=== PATIENT | male | born 2005 | race Caucasian/White ===

== ENCOUNTER 2025-08-03 07:45 | Day surgery (SDC) | payer BC, SELFPAY ==
[2025-08-03] VITALS (13 sets, daily range): BP systolic 119–155; BP diastolic 64–96; PULSE 76–112; RESP 16–20; TEMP 36.6–37.7; O2SAT 95–100; BMI 25.1
[2025-08-03] MEDS: LACTATED RINGERS 1000 ML 1,000 ML 100 ML IV (08:00)
[2025-08-03] MEDS: SODIUM CHLORIDE 0.9 % (FLUSH) 10 ML SYRINGE IVF (08:00)
--- NOTE | 2025-08-03 09:30 | P.ANES_ITS ---
Anesthesia Charges Start Date/Time Anesthesia Start Date: 08/03/25 Anesthesia Start Time: 08:51 Stop Date/Time Anesthesia Stop Date: 08/03/25 Anesthesia Stop Time: 09:30 Coding CPT Codes CPT Codes: ANESTH PROCEDURE ON MOUTH - 26708 ([id number]) P1 - NORMAL HEALTHY PATIENT, QK - DATA VISUALIZATION DEVELOPER 2-4 CNCRNT ANES PROC, QX - LEATHER STITCHER SVTeddy W/ MED DIRECTION
--- NOTE | 2025-08-03 09:30 | W.ANESCHARGE ---
Anesthesia Charges Start Date/Time Anesthesia Start Date: 08/03/25 Anesthesia Start Time: 08:51 Stop Date/Time Anesthesia Stop Date: 08/03/25 Anesthesia Stop Time: 09:30 Coding CPT Codes CPT Codes: ANESTH PROCEDURE ON MOUTH - 87451 ([id number]) P1 - NORMAL HEALTHY PATIENT, QK - DRY CLEANING MACHINE OPERATOR HELPER 2-4 CNCRNT ANES PROC, QX - SERVICE LEARNING COORDINATOR SVTeddy W/ MED DIRECTION
--- NOTE | 2025-08-03 09:33 | P.ANES_ITS ---
Anesthesia Charges Start Date/Time Anesthesia Start Date: 08/03/25 Anesthesia Start Time: 08:51 Stop Date/Time Anesthesia Stop Date: 08/03/25 Anesthesia Stop Time: 09:30 Coding CPT Codes CPT Codes: ANESTH PROCEDURE ON MOUTH - 27527 ([id number]) P1 - NORMAL HEALTHY PATIENT, QK - DOG HAIR CLIPPER 2-4 CNCRNT ANES PROC, QX - DIRECTOR EMPLOYMENT SVTeddy W/ MED DIRECTION
--- NOTE | 2025-08-03 09:33 | W.ANESCHARGE ---
Anesthesia Charges Start Date/Time Anesthesia Start Date: 08/03/25 Anesthesia Start Time: 08:51 Stop Date/Time Anesthesia Stop Date: 08/03/25 Anesthesia Stop Time: 09:30 Coding CPT Codes CPT Codes: ANESTH PROCEDURE ON MOUTH - 65688 ([id number]) P1 - NORMAL HEALTHY PATIENT, QK - INVERTER AND CLIPPER 2-4 CNCRNT ANES PROC, QX - OCEANOGRAPHER PHYSICAL SVTeddy W/ MED DIRECTION
[2025-08-03] MEDS: IBUPROFEN 100 MG/5 ML SUSP 200 MG PO (10:09)
[2025-08-03] MEDS: OXYCODONE 1 MG/ML ORAL SOLN 5 MG PO (10:09)
--- NOTE | 2025-08-03 10:13 | SUR.PHASEII ---
elevated temp, mild tavhycardia. Pt is complaining of pain in his tailbone area which has been going on for a few days
--- NOTE | 2025-08-03 11:53 | W.PM.ENTPROC ---
Procedure Note Date of procedure: 08/03/25 Procedure: Preop diagnosis chronic tonsillitis, tonsillar hypertrophy Postop diagnosis same Procedure tonsillectomy Under general trach anesthesia patient was prepped draped usual fashion. The McIvor mouth gag was inserted the tongue retracted forward. The right tonsil was removed with a combination of needlepoint and bipolar cautery. Bleeding was controlled with suction cautery meticulous hemostasis was achieved. This was repeated on the left side in identical fashion. The uvula was markedly elongated to the membranous portion was removed with the needlepoint cautery to help prevent postoperative swelling. Patient procedure well was taken recovery satisfactory condition. Blood loss less than 10 mL. Surgeon: Kiel Person MD
== END 2025-08-03 11:33 | disposition home or self-care (01) ==
LOC: OR 07:45
PROVIDERS: PCP Family Medicine; Visit Provider Otolaryngology
PROC: (CPT 42826; principal; 2025-08-03 08:30)
DX: J35.01 Chronic tonsillitis (principal)
CPT/HCPCS: 42826; 00170; 88304; A9270; J0330; J1100; J2250; J2405; J2704; J3010; J7120

== ENCOUNTER 2025-08-08 21:40 | Emergency (ER) | payer BC, SELFPAY ==
--- OUTSIDE RECORDS SUMMARY | 2025-08-08 21:42 | XMS_ITS | Clinical Summary ---
Author Organization [facility] Address [address] [place] [address] Care Team Providers Care Client Executive Name Role Phone Unavailable Primary Care Provider Unavailabl e Source Comments [facility],non-owned Affiliates and Associated Physician Practices is amultiple site organization consisting of ambulatory clinics and hospital sitesin [place] and [place]. This disclosure is being madepursuant to the Care Everywhere program and may not contain all information available regarding this patient. Last updated 18.[facility] Allergies No known active allergies Medications * Be aware that medications may not be up to date on this document. Alwaysverify current medications with the patient. cetirizine (ZYRTEC) 10 MG tablet TK 1 T PO QD 05/03/2019 Active fluticasone propionate (FLONASE) 50 MCG/ACT nasal spray 2 sprays Active Social History Tobacco Use Types Packs/Day Years Used Date Smoking Tobacco: Never Smokeless Tobacco: Never Sex and Gender Information Value Date Recorded Sex Assigned at Not on file Legal Sex Male 2:40 PM CDT Gender Identity Not on file Sexual Orientation Not on file Last Filed Vital Signs Vital Sign Reading Time Taken Comments Blood Pressure 150/63 01/14/2020 2:55 PM CDT Pulse 57 01/14/2020 2:55 PM CDT Temperature 36.3 C (97.3 F) 01/14/2020 2:55 PM CDT Respiratory Rate 16 01/14/2020 2:55 PM CDT Oxygen Saturation 100% 01/14/2020 2:55 PM CDT Inhaled Oxygen Concentration - - Weight - - Height - - Body Mass Index - - Plan of Treatment Health Maintenance Due Date Last Done Comments HIV SCREENING 2018 HPV VACCINE (1 - Male 3-dose series) 2018 MENINGOCOCCAL (Group B) VACC INE SHARED DECISION-MAKING (1 of 2 - Standard) 2019 HEPATITIS C SCREENING 01/05/2021 DTAP/TDAP/TD VACCINES (1 - Tdap) 2022 HEPATITIS B VACCINE (1 of 3 - 19+ 3-dose series) 2022 DEPRESSION SCREENING 11/08/2024 COVID-19 VACCINE (1 - 2023-2 5 season) 2025 INFLUENZA VACCINE (#1) 2025 ZOSTER VACCINE (1 of 2) 2053 HIB VACCINE Aged Out No longer eligi ble based on patient's age to complete this topic MENINGOCOCCAL GROUPS A/C/Y/W VACCINE Aged Out No longer eligible b ased on patient's age to complete this topic PNEUMOCOCCAL VACCINE Aged Out No long er eligible based on patient's age to complete this topic Insurance [employer]
--- OUTSIDE RECORDS SUMMARY | 2025-08-08 21:42 | XMS_ITS | Clinical Summary ---
Author Organization [facility] Address [address] [place] [id number] Care Team Providers Care Cold Press Operator Name Role Phone Montana Clay MD Primary Care Provider Allergies Active Allergy Reactions Criticality Noted Date Comments House Dust 03/20/2008 [place] Hives 03/20/2008 Medications fluticasone (50 mcg per actuation) nasal solution (FLONASE)Indicat ions:Allergic rhinitis due to pollen, unspecified seasonality Inhale 2 Sprays to both nostrils once daily. 48 g 11 1 Active cetirizine (ZYRTEC) 10 mg tabletIndication s:Allergic rhinitis due to pollen, unspecified seasonality Take 1 Tablet (10 mg) by mouth once daily. 90 tablet. 3 1 Active valACYclovir (VALTREX) 500 mg tabletIndication s:Recurrent cold sores Take 1 Tablet (500 mg) by mouth two times daily. 20 Tablet 10 5 Active Adapalene 0.3 % topical gelIndications:A cne vulgaris APPLY A SMALL AMOUNT TO THE AFFECTED AREA AT BEDTIME DIRECTED TO CLEANSED SKIN ON FACE 45 g 3 5 Active Active Problems Problem Noted Date Diagnosed Date Left varicocele 01/01/2021 Allergic rhinitis 07/07/2011 Herpes simplex 08/10/2010 Encounters Date Type Department Care Team Description 08/03/2025 Lab Requisition [facility] [phone] Kiel Person MD 07/08/2025 Refill [facility] [address] [place] [address] Montana Clay MD Refill Request (Adapalene) 06/25/2025 Telephone [facility] [address] [place] [address] Montana Clay MD CONSULT (DISCUSS A REFERRAL FOR PATIENT) from Last 3 Months Immunizations Immunization Administration Dates Next Due AMB Influenza, IIV3 (Age >=3 years)(Flu Clinic Only) 08/14/2009 COVID-19 vaccine (Credii NTech 30mcg/0.3mL) PFMDV 03/04/2021,02/11/2021 DTaP 02/17/2008, 4,2003,05/03,2003 HIB-HepB (Comvax) 07/24/2004,2003,03/13/20 03 HPV 9 (Gardasil 9) 06/20/2021,09/18/2016, 016 Hepatitis A (Peds) 05/14/2017,05/12/2016 Hepatitis B (Peds) 2003 Inactivated Polio Vaccine 02/17/2008,,2003,03/13 Influenza, IIV3 (Age 6-35 mos) 09/11/2011 Influenza, IIV3 (Age >=3 years) 09/11/20 11,08/27/2010,08/14/2009,08/27,09/19/2007,09/13/2006 Influenza, IIV4 09/18/2016,09/24/2015 MENINGOCOCCAL VACCINE 2 VIAL 2MO-55YO (MENVEO) 04/30/2015 MMR 02/17/2008,03/05/2004 Meningococcal Vaccine (Menactra) 06/25/2020 Pneumococcal conj 7-Valent (Prevnar 7) 3,2003,2003 Tdap 04/30/2015 Varicella Vaccine 02/17/2008,03/05/2004 Family History Medical History Relation Name Comments Cancer Maternal Aunt ALL age 6 Hyperlipidemia Paternal Grandfather Hypertension Paternal Grandfather Cancer-colon No Family History Cancer-prostate No Family History Diabetes No Family History Heart attack No Family History Stroke No Family History Thyroid Disease No Family History Relation Name Status Comments Maternal Aunt Paternal Grandfather Social History Tobacco Use Types Packs/Day Years Used Date Smoking Tobacco: Never Smokeless Tobacco: Never Tobacco Cessation:Counseling Given: Not Answered Alcohol Use Standard Drinks/Week Comments No 0 (1 standard drink = 0.6 oz pur e alcohol) PHQ-2 Answer Date Recorded PHQ-2 TOTAL SCORE 0 01/12/2025 Social Connections Answer Date Recorded Do you often feel lonely or isolated from those around you? 0 12/03/2024 Financial Resource Strain Answer Date R ecorded Difficulty of Paying Living Expenses 3 12/03/2024 Difficulty of Paying Living Expenses Not on file 12/03/2024 Food Insecurity Answer Date Recorded Do you worry your food will run out before you are able to buy more? 1 12/03/2024 Transportation Needs Answer Date Record ed Does lack of transportation keep you from medica l appointments? 1 12/03/2024 Does lack of transportation keep you from work, meetings or getting things that you need? 1 12/03/2024 Housing Stability Answer Date Recorded What is your housing situation today? 1 12/03/2024 Utilities Answer Date Recorded Do you have trouble paying f or utilities (for example, heat, electricity, water, phone)? 1 12/03/2024 Sex and Gender Information Value Date Recorded Sex Assigned at Not on file Legal Sex Male 7:25 AM HOUSE VISITOR Gender Identity Not on file Sexual Orientation Not on file Occupation Industry Job Start Date Job End Date Student Not on file Not on file Not on file Obstetrics History Last Filed Vital Signs Vital Sign Reading Time Taken Comments Blood Pressure 138/74 01/12/2025 2:53 PM HOUSE VISITOR Pulse 60 01/12/2025 2:53 PM HOUSE VISITOR Temperature 36.7 C (98 F) 12/03/2024 1:21 PM HOUSE VISITOR Respiratory Rate 15 12/03/2024 1:21 PM HOUSE VISITOR Oxygen Saturation 96% 01/12/2025 2:53 PM HOUSE VISITOR Inhaled Oxygen Concentration - - Weight 79.4 kg (175 lb) 01/12/2025 2:53 PM HOUSE VISITOR Height 180.3 cm (5' 11) 01/12/2025 2:53 PM HOUSE VISITOR Body Mass Index 24.41 01/12/2025 2:53 PM HOUSE VISITOR Plan of Treatment Health Maintenance Due Date Last Done Comments HIV for age 15-65 2018 Hepatitis C screening for age 18-79 2021 Tetanus booster 04/30/2025 04/30/2015 COVID-19 vaccine series ( - season) 2025 03/04/2021, 02/11/2021 Influenza Vaccine (#1) 2025 6, 09/24/2015, 09/11/2011, Additional history exists BMI (ht and wt on same day) for age 18+ 01/12/2026 01/12/2025, 11/12/2022, 06/20/2021, Additional history exists Depression screening for age 12+ 01/12/2026 01/12/2025 RSV vaccine for adults or (1 - 1-dose 75+ series) 2078 Pneumococcal series for age 6-49 Aged Out 2003, 2003, 2003 No longer eligible based on patient's age to complete this topic Hepatitis B series for 19+ Completed 07/24, 2003, 2003, Additional history exists HPV series for age 9-45 Completed 06/20/20 21, 09/18/2016, 05/12/2016 Procedures Procedure Name Priority Date/Time Associated Diagnosis Comments LAB TRACKING EVENT Routine 08/03/2025 12 :00 PM CDT PATH TISSUE EXAM Routine 08/03/2025 9:05 AM CDT from Last 3 Months Results * LAB TRACKING EVENT (08/03/2025 12:00 PM CDT) Other (Other) Client Collect / Unknown 08/03/2025 12:00 PM CDT 08/03/2025 1:51 PM CDT us Kiel Person MD LAB BILL ONLY Final Result [facility] [address] [place] [address], * PATH TISSUE EXAM (08/03/2025 9:05 AM CDT) Case Report Pathology Report Case: [id number] Authorizing Provider: Kiel Person, Collected: 08/03/2025 09 Ordering Location: [facility] Received: 08/03/2025 1516 Pathologist: Tim Mcclain MD Specimens: A) - Right Tonsil B) - Left Tonsil 08/08/2025 11:31 AM CDT [facility] [employer] [facility] Final Diagnosis A) TONSIL, RIGHT, TONSILLECTOMY: 1. Reactive lymphoid hyperplasia 2. Negative for neoplasm on these sections B) TONSIL, LEFT, TONSILLECTOMY: 1. Reactive lymphoid hyperplasia 2. Negative for neoplasm on these sections 08/08/2025 11:31 AM CDT [facility] [employer] [facility] at 1131 CDT Clinical Information Tonsillectomy 08/08/2025 11:31 AM CDT [facility] [employer] [facility] Gross Description A) Received in formalin, labeled with the patient's name and right tonsil, is a 4 x 2.8 x 2.3 cm palatine tonsil with shiny cryptic mucosa and unremarkable cut surfaces. A traffic representative section is submitted 1 cassette. B) Received in formalin, labeled with the patient's name and left tonsil, is a 2.8 x 2.4 x 2.3 cm wheeler ovoid palatine tonsil with shiny cryptic mucosa and unremarkable cut surfaces. A traffic representative section is submitted in 1 cassette. TRB 08/06/2025 08/08/2025 11:31 AM CDT [facility] [employer] [facility] Microscopic Description The final diagnosis is based on microscopic examination of appropriate sections of all specimens. 08/08/2025 11:31 AM CDT [facility] [employer] [facility] Additional Information Interpreted at [facility] [employer] [facility] - [address], [place] [address] 08/08/2025 11:31 AM T [facility] Other (Right Tonsil) 08/03/2025 9:05 AM CDT 08/03/2025 3:16 PM CDT Specimen (specimen) (Left Tonsil) 08/03/2025 9:10 AM CDT 08/03/2025 3:16 PM CDT us Kiel Person MD PATHOLOGY/CYTOLOGY Fi nal Result [facility] [address] [place] [id number], [place] from Last [address] [employer] [facility] [employer] [id number] [place] [id number] Care Teams Cold Press Operator Relationship Specialty Start Date End Date Montana Clay MD [address] [facility] [place]REY[place] [id number] PCP - General Family Practice 08/30/19
[2025-08-08 21:50] VITALS: BP 127/77; PULSE 117; RESP 18; TEMP 38; O2SAT 99; BMI 25.0
--- NOTE | 2025-08-08 23:10 | ED.GENADULT ---
HPI - General Adult General Chief complaint: Skin/Abscess/Foreign Body Stated complaint: sore on tailbone Time Seen by Provider: 08/08/25 22:51 History of Present Illness HPI narrative: Red spot on tailbone- hard, swollen, open and painful Noticed 07/31, surgery 08/03- noticed it being more painful Today hurts even more?cannot sit or walk Taking oxy for tonsils out?1930 last and not helping with pain 20-year-old young man presenting to the emergency department with concern of tailbone area pain and swelling. Has had a small bump in this area, upper buttock, intermittently but was most noticeable initially about 6 days ago and has only worsened. No noted fever. Not sure that there has been drainage sounds like there has been some moisture; been irritated Had tonsillectomy 5 days ago. This was for recurrent tonsillitis. Started to have a little more pain in his throat; presumed soon to slough scabs. No current antibiotics. Related Data Previous Rx's ?Medication ?Instructions ?Recorded ondansetron 4 mg disintegrating 4 mg PO Q8H #10 tabs 08/03/25 tablet oxycodone 5 mg/5 mL oral solution 5 mg (5 mL) PO Q4-6H PRN pain #200 08/03/25 mL Allergies Allergy/AdvReac Type Severity Reaction Status Date / Time No Known Drug Allergies Allergy Verified 08/08/25 21:55 Review of Systems Status of ROS: Reports: 6 or more systems reviewed and unremarkable except as noted in History and [facility] Social History Smoking Status: Never smoker How often do you have a drink containing alcohol: never AUDIT-C Alcohol total score: 0 Non-prescribed substance use: denies use Exam Narrative: Exam Narrative: Pleasant. NAD though lying in a way to avoid lying on his buttocks. Breathing easily. Looks a little flushed in his face. Abdomen is soft nontender. Examination of the back side does show area of induration and erythema on the right medial upper buttock that is maximal dimension 4 in or so. Does extend all the way to medial cleft. Quite tender to palpation. There is some serous drainage centrally. No actual pointing. Calor is present. Const: Vital Signs, click to edit/add: Vital Signs - 24 hr 08/08/25 21:50 08/08/25 23:40 08/09/25 01:21 Temperature 100.4 F H 100.4 F H 100.1 F H Pulse Rate [Pulse Oximeter] 117 H 116 H 111 H Respiratory Rate 18 18 18 Blood Pressure [Ri t Upper Arm] 127/77 117/65 122/68 Pulse Oximetry 99 95 95 Oxygen Delivery Me thod Room Air Room Air Room Air Documenting provider has reviewed patient's vital signs: yes Course Vital Signs Vital signs: Initial Vital Signs Temperature 100.4 F H 08/08/25 21:50 Temperature Source Temporal Artery Scan 08/08/25 21:50 Pulse Rate 117 H 08/08/25 21:50 Respiratory Rate 18 08/08/25 21:50 Blood Pressure 127/77 08/08/25 21:50 Blood Pressure Mean 93 08/08/25 21:50 Blood Pressure Position Sitting 08/08/25 21:50 Pulse Oximetry 99 08/08/25 21:50 Oxygen Delivery Method Room Air 08/08/25 21:50 Vital Signs Temperature 100.4 F H 08/08/25 21:50 Pulse Rate 117 H 08/08/25 21:50 Respiratory Rate 18 08/08/25 21:50 Blood Pressure 127/77 08/08/25 21:50 Pulse Oximetry 99 08/08/25 21:50 Oxygen Delivery Method Room Air 08/08/25 21:50 Temperature 100.1 F H 08/09/25 01:21 Pulse Rate 111 H 08/09/25 01:21 Respiratory Rate 18 08/09/25 01:21 Blood Pressure 122/68 08/09/25 01:21 Pulse Oximetry 95 08/09/25 01:21 Oxygen Delivery Method Room Air 08/09/25 01:21 Medications Administered Medications: Discontinued Medications Generic Name Dose Route Start Last Admin Trade Name Freq PRN Reason Stop Dose Admin Hydromorphone HCl 1 mg 08/08/25 23:18 08/08/25 23:40 Hydromorphone 0.5 Mg/0.5 Ml Inj IVP 08/08/25 23:19 1 mg ONCE ONE Administration Sodium Chloride 500 mls @ 500 mls/hr 08/08/25 23:18 08/09/25 01:15 0.9 % Sodium Chloride 500 Ml IV 08/09/25 00:17 Infused .Q1H ONE Infusion Ceftriaxone Sodium 1 gm/ 100 mls @ 200 mls/hr 08/09/25 01:07 08/09/25 03:39 Sodium Chloride IVPB 08/09/25 01:08 Infused ONCE ONE Infusion Medical Decision Making MDM Narrative Medical decision making narrative: This is likely an abscess with cellulitic change. Likely pilonidal given location. Anticipating need for drainage did place IV. Is given some Dilaudid. White count is 13.1. Pain improved. Did place a point of care ultrasound noting loculated heterogeneous material without enhanced edges. This does appear to be some degree of an abscess/fluid collection. See image captured. Informed consent obtained for needed I and D. Injected with fanned 0.25% Sensorcaine initially total of 11 mL. This did result in adequate anesthesia. Cleanse area with Betadine and incised with 11 blade. Moderate amount of purulence did begin to pour out. Collected some for wound culture. Did break up loculations with curved mosquito producing more purulent drainage. This was unfortunately quite painful. Did inject another 4 mL of Sensorcaine into deeper tissues. I would note from point of incision I would estimate that tracks at least 4 in caudal. Applied pressure to obtain primarily bloody drainage. Did place iodoform gauze. Not as deep perhaps as would have liked given degree of discomfort. Antibiotic ointment and absorbent gauze dressing placed. Estimate 5 mL of bloody drainage in addition to the purulence obtained. While painful, I would say tolerated this quite well. Considering fever on arrival, I did give a dose of Rocephin in the IV. Did also receive 500 mL of normal saline. Wound culture pending. See patient discharge plan for further discussion Pull out about 2 in of wick every day until gone. Change dressing daily or when dressing is soaked. I would follow-up to discuss this with General surgery as these tend to be recurrent problems. Call later this morning and see if maybe you could be seen yet this week. Wound culture will be pending here. We will call you if antibiotics need to be changed. Prescribing Augmentin from [facility] (tablets as requested. might be able to split these in half) Be seen for marked increase in swelling or pain, worsening fever. Lab Data Labs: Lab Results 08/08/25 Range/Units 23:30 WBC 13.06 H (4.50-11.00) K/uL RBC 4.98 (4.30-5.90) m/uL Hgb 14.5 (13.5-17.5) gm/dL Hct 42.1 (37.0-53.0) % MCV 85 (80-100) fL MCH 29 (26-34) pg MCHC 34 (32-36) gm/dL RDW Coeff of Merary 11.9 (11.5-15.5) % Plt Count 358 (140-440) K/uL Neut % (Auto) 69.5 (42.0-72.0) % Lymph % (Auto) 15.2 L (20-44) % [place] % (Auto) 13.5 H (0.0-11.0) % Eos % (Auto) 0.8 (0.0-7.0) % Baso % (Auto) 0.2 (0.0-3.0) % Neut # (Auto) 9.10 H (1.7-7.0) K/uL Lymph # (Auto) 2.00 (0.90-2.90) K/uL [place] # (Auto) 1.80 H (0.00-0.90) K/UL Eos # (Auto) 0.10 (0.00-0.50) K/uL Baso # (Auto) 0.00 (0.00-0.30) K/uL Abs Immat Gran (auto) 0.10 (0.00-0.30) K/uL Imm/Tot Granulo (auto) 0.8 % Discharge Plan Discharge Clinical Impression: Cyst, pilonidal, with abscess, Cellulitis Patient Disposition: Home w/ Parent or Adult Condition: Improved Instructions: Pilonidal Cyst (ED) Additional Instructions: Pull out about 2 in of wick every day until gone. Change dressing daily or when dressing is soaked. I would follow-up to discuss this with General surgery as these tend to be recurrent problems. Call later this morning and see if maybe you could be seen yet this week. Wound culture will be pending here. We will call you if antibiotics need to be changed. Prescribing Augmentin from [facility] (tablets as requested. might be able to split these in half) Be seen for marked increase in swelling or pain, worsening fever. Activity Level: No Restrictions Discharge Diet: Regular Prescriptions: No Action oxycodone 5 mg/5 mL solution 5 mg PO Q4-6H PRN (Reason: pain) Qty: 200 0RF ondansetron 4 mg tablet,disintegrating 4 mg PO Q8H Qty: 10 0RF Follow Up/Referrals: Ananth Crocker MD [Primary Care Provider, Family Practice] Stand Al[facility] Instructions
[2025-08-08] MEDS: 0.9 % SODIUM CHLORIDE 500 ML 500 ML IV (23:38)
[2025-08-08 23:39] LABS: Hematocrit* 42.1 % (37.0-53.0); Hemoglobin* 14.5 gm/dL (13.5-17.5); Immature Granulocytes Pct Auto 0.8 %; Mean Corpuscular HGB Conc 34 gm/dL (32-36); Mean Corpuscular Hemoglobin 29 pg (26-34); Mean Corpuscular Volume 85 fL (80-100); RDW Coefficient of Variation % 11.9 % (11.5-15.5); Red Blood Count* 4.98 m/uL (4.30-5.90); White Blood Count* 13.06 K/uL (4.50-11.00)
[2025-08-08 23:40] VITALS: BP 117/65; PULSE 116; RESP 18; TEMP 38; O2SAT 95
[2025-08-08 23:42] LABS: Immature Granulocytes Abs Auto 0.10 K/uL (0.00-0.30); Lymphocytes Absolute Auto 2.00 K/uL (0.90-2.90); Slide Review Reflex No
[2025-08-09] MEDS: cefTRIAXone 1 GM in 0.9 % SODIUM CHLORIDE Mini-bag 100 ML IVPB (01:17)
[2025-08-09 01:21] VITALS: BP 122/68; PULSE 111; RESP 18; TEMP 37.8; O2SAT 95
== END 2025-08-09 01:54 | disposition home or self-care (01) ==
PROVIDERS: Emergency Provider Family Medicine; PCP Family Medicine
DX: L05.01 Pilonidal cyst with abscess (principal); L03.317 Cellulitis of buttock
CPT/HCPCS: 10080; 36415; 85025; 87070; 87186; 96365; 96366; 96375; 99283; 99284; J0696; J1171; J7030